=== PATIENT | male | born 1985 | race Caucasian/White ===

== ENCOUNTER 2021-01-05 10:56 | Emergency (ER) | payer BC, SELFPAY ==
[2021-01-05 11:13] VITALS: BP 111/64; PULSE 70; RESP 16; TEMP 37.4; O2SAT 100
--- NOTE | 2021-01-05 11:28 | ED.URI ---
HPI - URI/Sore Throat General Chief Complaint: Upper Respiratory Infection Stated Complaint: sore throat Time Seen by Provider: 01/05/21 11:28 Source: patient Mode of arrival: ambulatory Limitations: no limitations History of Present Illness HPI Narrative: Nick Morris is a 35-year-old male with no PMH who comes to [facility] with complaints of sore throat difficulty swallowing fever of 100.4, myalgias and low energy that started on Friday. Arrived here on vacation with his family and started feeling poorly Friday night. He was vaccinated for Covid and his last injection was months ago. Related Data Home Medications Medication Instructions Recorded Confirmed fluoxetine 20 mg PO DAILY 01/05/21 01/05/21 Allergies Allergy/AdvReac Type Severity Reaction Status Date / Time No Known Allergies Allergy Verified 01/05/21 11:22 Review of Systems Review of Systems: CONSTITUTIONAL: Has fever, chills, sweats. Complaining of fatigue and myalgia EYES: Denies visual changes, redness, discharge. ENT: Denies rhinorrhea, congestion, has sore throat, otalgia. CARDIOVASCULAR: Denies chest pain, palpitations, edema. RESPIRATORY: Denies dyspnea, wheezing, cough GASTROINTESTINAL: Denies abdominal pain, nausea, vomiting, diarrhea. GENITOURINARY: Denies dysuria, hematuria, abnormal discharge SKIN: Denies rash or itching. NEUROLOGIC: Denies numbness, or focal weakness. PSYCHIATRIC: Denies anxiety or depression. [facility] Past Medical History Medical History No acute medical problems Family History Family History Other No acute medical problems Social History Social History Smoking status: Never smoker Alcohol intake: current Comments At time of signature, I agree with nursing past medical, surgical, social and family history. There is no relevant family history pertinent to the presenting complaint. Exam Narrative: GENERAL: This is a well-nourished, well-developed patient, in moderate distress. Looks like he does not feel well HEAD: normocephalic, atraumatic. EYES: Sclera clear/white. Vision is grossly intact. EARS: External ears normal, auditory canals clear and without drainage, TMs normal without perforation. Hearing grossly intact. NOSE: External nose normal without nasal discharge, nares without redness, no rhinorrhea. THROAT: Mucous membranes moist, posterior pharynx erythema with NECK: Neck supple, lymph nodes enlarged ,non-tender CARDIOVASCULAR: Regular rate and rhythm without murmurs, gallops, or rubs. RESPIRATORY: Clear to auscultation. Breath sounds equal bilaterally. No wheezes, rales, or rhonchi. GASTROINTESTINAL: Abdomen soft, SKIN: warm, intact with no suspicious lesions or rash, good texture and turgor. NEURO: awake, alert, and oriented to person, place and time. There were no obvious focal neurologic abnormalities. Steady gait EXTREMITIES: Normal range of motion. BACK: Nontender without deformity Course Course Emergency Course: [facility] complaints of fever sore throat difficulty swallowing and myalgias; vaccinated Strep swab was negative Patient here on vacation-started on prednisone, Zithromax, Zyrtec, told to take [id number] cough medication if develops a cough Vital Signs Vital signs: Vital Signs Temperature 99.3 F 01/05/21 11:13 Pulse Rate 70 01/05/21 11:13 Respiratory Rate 16 01/05/21 11:13 Blood Pressure 111/64 01/05/21 11:13 Pulse Oximetry 100 01/05/21 11:13 Temperature 99.3 F 01/05/21 11:13 Pulse Rate 70 01/05/21 11:13 Respiratory Rate 16 01/05/21 11:13 Blood Pressure 111/64 01/05/21 11:13 Pulse Oximetry 100 01/05/21 11:13 MDM - URI/Sore Throat Differential Diagnosis Differential diagnosis: Likely upper respiratory infection, sinusitis, viral in
== END 2021-01-05 11:43 | disposition home or self-care (01) ==
PROVIDERS: Emergency Provider Nurse Practitioner
DX: J03.90 Acute tonsillitis, unspecified (principal)
CPT/HCPCS: 87081; 87880; 99203; G0463